=== PATIENT | male | born 1945 | race Caucasian/White ===

== ENCOUNTER → 2020-01-22 | Day surgery (SDC) | payer MEDICARE ==
[2020-01-21 11:12] VITALS: BMI 33.6
[~2020-01-22] MED LIST: LIDOCAINE 1% INJ 10MG/ML (20 ML MDV) ONE; LIDOCAINE 1% INJ 10MG/ML (20 ML MDV) SQ ONE
[2020-01-22 12:45] VITALS: BP 146/70; PULSE 50; RESP 16; TEMP 98.5
[2020-01-22 13:04] LABS: Basophils # (A) 0.1 k/uL (0-0.2); Basophils % (A) 1 %; Eosinophils # (A) 0.2 k/uL (0-0.7); Eosinophils % (A) 2 %; HCT 43.7 % (39.0-53.0); Hypochromasia Moderate; Lymphocytes # (A) 1.3 k/uL (1.0-4.8); Lymphocytes % (A) 21 %; MCH 34.4 pg (25.0-35.0); MCV 107.5 fL (80.0-100.0); Macrocytosis Moderate; Mean Platelet Volume 7.1; Monocytes # (A) 0.3 k/uL (0-1.0); Monocytes % (A) 5 %; Neutrophils # (A) 4.2 k/uL (1.3-7.7); Neutrophils % (A) 69 %; Platelet Count 222 k/uL (150-450); RBC 4.07 m/uL (4.30-5.90); RDW 14.6 % (11.5-15.5); WBC 6.1 k/uL (3.8-10.6)
[2020-01-22 13:12] LABS: Potassium 3.6 mmol/L (3.5-5.1)
--- NOTE | 2020-01-22 16:26 | IR ---
EXAMINATION TYPE: IR cvc insert >=5 years DATE OF EXAM: 01/22/2020 COMPARISON: NONE CLINICAL HISTORY: Osteomyelitis WASTE MINIMIZATION TECHNICIAN: Dr. Anita Steiner PROCEDURE: (Procedure images are seen on same date accession number [id number]). The procedure was discussed with the patient. The risks, complications, benefits, and alternatives we re discussed and any questions were answered. Informed consent was obtained. The patient was placed supine. Maximal barrier technique utilized. After informed consent, the skin o verlying the left basilic vein was localized with ultrasound and noted to be compressible and patent. An ultrasound image was obtained and submitted on the patient's chart. Sterile technique utilized w ith the ultrasound machine. The skin overlying was prepped and draped and Lidocaine used for local an esthesia. Access was gained to the vein under ultrasound guidance with a 21 gauge needle and a 0.018 inch wire was advanced. A skin edil was made with a scalpel. Access site was dilated with Peel-Away s comfort. 4 FR single lumen catheter tailored to the appropriate length of 44 cm and advanced such that the distal tip is at the cavoatrial junction. Spot image was obtained verifying PICC placement. Kassidy ter was fixed to the skin and a sterile dressing was placed following hemostasis. Catheter was aspira jerica and flushed with saline. Patient was discharged from the radiology department in stable condition without immediate complication. Fluoro time: 0.6 minutes Fluoroscopic images obtained: 64 IMPRESSION: Status post ultrasound-guided and fluoroscopic-guided PICC placement, ready for use.
== END ==
LOC: CATHCVL 11:53
PROVIDERS: ATTEND Radiology Diagnostic Radiology
DX: E11.69 Type 2 diabetes mellitus with other specified complication (principal); M86.9 Osteomyelitis, unspecified; B95.61 Methicillin susceptible Staphylococcus aureus infection as the cause of diseases classified elsewhere; J44.9 Chronic obstructive pulmonary disease, unspecified; Z88.0 Allergy status to penicillin; Z79.84 Long term (current) use of oral hypoglycemic drugs; Z79.01 Long term (current) use of anticoagulants; Z79.899 Other long term (current) drug therapy; Z88.8 Allergy status to other drugs, medicaments and biological substances; Z82.49 Family history of ischemic heart disease and other diseases of the circulatory system; Z83.3 Family history of diabetes mellitus
CPT/HCPCS: 36573; 80051; 82565; 84520; 85025; C1751; C1769; J2001

== ENCOUNTER 2020-02-10 12:39 | Observation (INO) | payer MEDICARE ==
--- NOTE | 2020-02-10 13:09 | ED ---
General Adult HPI - General Chief complaint: Seizure Stated complaint: Poss seizure Time Seen by Provider: 02/10/20 12:47 Source: patient, Caregiver Mode of arrival: wheelchair Limitations: physical limitation - History of Present Illness Initial comments: Dictation was produced using [employer] dictation software. please excuse any grammatical, word or spelling errors. This patient was cared for during a federal and state declared state of emergen cy secondary to Covid 19 Chief Complaint: 74-year-old male presents to the emergency department for seizure History of Present Illness: 82-year-old male his past medical history of COPD, c hronic wounds, diabetes, DVT, dyslipidemia. He was at our local hyperbaric oxygen facility. I did receive report from nurse practitioner who operates the hyperbaric oxygen chamber. She states that he was in the HPI or chamber with a dose of 2.2 ATMS for 1-1/2 hours. Patient was observed to have a seizure for couple minutes with postictal state after. Patient is at bedside stable medical condition. He does not report any symptoms. He does not remember what happened. He feels at baseline currently. Patient denies any history of seizures. The ROS documented in this emergency department record has been reviewed and confirmed by me. Those systems with pertinent positive or negative responses have been documented in the HPI. All other systems are other negative and/or noncontributory. PHYSICAL EXAM: General Impression: Alert and oriented x3, not in acute distress HEENT: Normocephalic atraumatic, extra-ocular movements intact, pupils equal and reactive to light bilaterally, mucous membranes moist. Cardiovascular: Heart regular rate and rhythm Chest: Able to complete full sentences, no retractions, no tachypnea Abdomen: abdomen soft, non-tender, non-distended, no organomegaly Musculoskeletal: Pulses present and equal in all extremities, no peripheral edema Motor: no focal deficits noted Neurological: CN II-XII grossly intact, no focal motor or sensory deficits noted, NIH of 0 Skin: Chronic hyperpigmented wounds to the bilateral lower extremities. Psych: Normal affect and mood ED course: 74-year-old male presents with oxygen toxicity secondary to hyperbaric oxygen administration. Vital signs upon arrival are within acceptable limits. Patient's well-appearing at bedside. He reports feeling baseline. Physical examination is benign for any acute processes. Laboratory evaluation obtained. CBC unremarkable. Metabolic panel is negative. Computed tomography scan of the brain shows no acute processes. Case is discussed with Dr. Arias is a patient be admitted for EEG. Patient notified of results. Patient be admitted to [facility]. EKG interpretation: Ventricular rate 97, normal sinus rhythm, MS interval 180, QRS 156, QTC 525. No MS prolongation, no QTC prolongation, no ST or T-wave changes noted. No EKG for comparison - Related Data Home Medications Medication Instructions Recorded Confirmed Lisinopril-Hctz 10-12.5 mg 1 each PO DAILY 09/30/13 01/22/20 [Zestoretic 10-12.5] Simvastatin [Zocor] 20 mg PO HS 09/30/13 01/22/20 Warfarin [Coumadin] 5 mg PO HS 09/30/13 01/21/20 metFORMIN HCL 500 mg PO BID 09/30/13 01/22/20 Allergies Allergy/AdvReac Type Severity Reaction Status Date / Time cephalexin monohydrate Allergy Unknown Verified 01/21/20 11:00 [From Keflex] lanolin [From BAG BALM] Allergy Rash/Hives Verified 01/21/20 11:00 lanolin Allergy Swelling Verified 01/21/20 11:00 oxyquinoline sulfate Allergy Rash/Hives Verified 01/21/20 11:00 [From BAG BALM] penicillin G Allergy Rash/Hives Verified 01/21/20 11:00 petrolatum,white Allergy Rash/Hives Verified 01/21/20 11:00 [From BAG BALM] Review of Systems ROS Statement: Those systems with pertinent positive or pertinent negative responses have been documented in the HPI. ROS Other: All systems not noted in ROS Statement are negative. Past Medical History Past Medical History: COPD, Diabetes Mellitus, Deep Vein Thrombosis (DVT), Hyperlipidemia, Hypertension, Pneumonia Additional Past Medical History / Comment(s): Hx of wounds left leg. Hx Pneumonia a few times, current wound to left foot getting IV abx and hy History of Any Multi-Drug Resistant Organisms: None Reported Past Surgical History: Joint Replacement, Orthopedic Surgery Additional Past Surgical History / Comment(s): Left hip replacement. Plates and pins left leg after injury that have since been removed. Bilatateral Cataract surgery. Past Anesthesia/Blood Transfusion Reactions: No Reported Reaction Past Psychological History: No Psychological Hx Reported Smoking Status: Never smoker Past Alcohol Use History: None Reported Past Drug Use History: None Reported - Past Family History Mother Family Medical History: CVA/TIA, Diabetes Mellitus, Hypertension Additional Family Medical History / Comment(s): age 50 of CVA. Father Family Medical History: Diabetes Mellitus, Vascular Disorder Additional Family Medical History / Comment(s): age 85 of "old age". General Exam Limitations: physical limitation Course Vital Signs 02/10/20 12:46 Temperature 98 F Pulse Rate 99 Respiratory 18 Rate Blood Pressure 134/74 O2 Sat by Pulse 95 Oximetry Medical Decision Making - Lab Data Result diagrams: 02/10/20 13:15 02/10/20 13:15 Lab Results 02/10/20 02/10/20 02/10/20 Range/Units 13:15 13:15 13:18 WBC 7.7 (3.8-10.6) k/uL RBC 3.79 L (4.30-5.90) m/uL Hgb 13.1 (13.0-17.5) gm/dL Hct 42.0 (39.0-53.0) % MCV 110.9 H (80.0-100.0) fL MCH 34.5 (25.0-35.0) pg MCHC 31.1 (31.0-37.0) g/dL RDW 14.4 (11.5-15.5) % Plt Count 233 (150-450) k/uL MPV 7.0 Neutrophils % 83 % Lymphocytes % 9 % Monocytes % 4 % Eosinophils % 2 % Basophils % 1 % Neutrophils # 6.4 (1.3-7.7) k/uL Lymphocytes # 0.7 L (1.0-4.8) k/uL Monocytes # 0.3 (0-1.0) k/uL Eosinophils # 0.2 (0-0.7) k/uL Basophils # 0.1 (0-0.2) k/uL Manual Slide Review Performed Hypochromasia Marked Poikilocytosis (manual Present Macrocytosis Marked A Sodium 143 (137-145) mmol/L Potassium 4.2 (3.5-5.1) mmol/L Chloride 106 (98-107) mmol/L Carbon Dioxide 32 H (22-30) mmol/L Anion Gap 5 mmol/L BUN 17 (9-20) mg/dL Creatinine 1.09 (0.66-1.25) mg/dL Est GFR (CKD-EPI)AfAm 78 (>60 ml/min/1.73 sqM) Est GFR (CKD-EPI)NonAf 68 (>60 ml/min/1.73 sqM) Glucose 196 H (74-99) mg/dL POC Glucose (mg/dL) 183 H (75-99) mg/dL POC Glu Director [employer] ID Carolyn Barron Calcium 8.5 (8.4-10.2) mg/dL Magnesium 2.2 (1.6-2.3) mg/dL Disposition Clinical Impression: Seizure Disposition: ADMITTED IP TO THIS [facility] Condition: Fair Referrals: Nonstaff,Physician [REFERRING] - 1-2 days Decision Time: 14:23
[2020-02-10 13:22] LABS: Glucose,Whole Blood 183 mg/dL (75-99)
[2020-02-10 13:27] LABS: Basophils # (A) 0.1 k/uL (0-0.2); Basophils % (A) 1 %; Eosinophils # (A) 0.2 k/uL (0-0.7); Eosinophils % (A) 2 %; HGB 13.1 gm/dL (13.0-17.5); Hypochromasia Marked; Lymphocytes # (A) 0.7 k/uL (1.0-4.8); Lymphocytes % (A) 9 %; MCH 34.5 pg (25.0-35.0); MCHC 31.1 g/dL (31.0-37.0); MCV 110.9 fL (80.0-100.0); Macrocytosis Marked; Monocytes # (A) 0.3 k/uL (0-1.0); Monocytes % (A) 4 %; Neutrophils # (A) 6.4 k/uL (1.3-7.7); Neutrophils % (A) 83 %; Platelet Count 233 k/uL (150-450); RBC 3.79 m/uL (4.30-5.90); RDW 14.4 % (11.5-15.5); WBC 7.7 k/uL (3.8-10.6)
--- NOTE | 2020-02-10 14:03 | CT ---
EXAMINATION TYPE: CT brain wo con DATE OF EXAM: 02/10/2020 COMPARISON: Weakness and confusion HISTORY: weakness and confusion CT DLP: 1202.4 mGycm Automated exposure control for dose reduction was used. FINDINGS: There is a focal area of abnormal attenuation involving the basal ganglia on the right most likely in the basis of remote infarct. Moderate generalized degenerative change of the white matter and perive ntricular low attenuation most typical remote white matter ischemia. No acute hemorrhage or mass effect. No midline shift. Ectasia of the carotid arteries are noted. Craniocervical junction maintained. Sella turcica demonstrates mild prominence of the pituitary gland . IMPRESSION: DEGENERATIVE AND NONSPECIFIC WHITE MATTER CHANGE WITH NO EVIDENCE OF ACUTE HEMORRHAGE OR MASS EFFECT.
[2020-02-10 14:11] LABS: Calcium 8.5 mg/dL (8.4-10.2); Magnesium 2.2 mg/dL (1.6-2.3); Potassium 4.2 mmol/L (3.5-5.1)
[2020-02-10 14:21] LABS: Poikilocytosis (M) Present
[2020-02-10] MEDS ORDERED: NALOXONE 0.4 MG/ML 1 ML VIAL IV PRN (14:23)
[2020-02-10] MEDS ORDERED: LORazepam 2 MG/ML INJ IV PRN (15:01)
[2020-02-10 16:02] LABS: INR 1.4 (<1.2); Prothrombin Time 13.8 sec (9.0-12.0)
[2020-02-10 16:59] LABS: Glucose,Whole Blood 149 mg/dL (75-99)
[2020-02-10] MEDS: INSULIN ASPART (NovoLOG) 100 UNIT/ML VIAL SQ SCH ×2 (17:54→20:18)
[2020-02-10] MEDS ORDERED: WARFARIN 3 MG TAB PO ONE (18:00)
--- NOTE | 2020-02-10 19:08 | P.HPIM ---
History of Present Illness This is a pleasant 74 years old male with past medical history of COPD, diabetes mellitus, deep venous thrombosis on warfarin about 10 years ago where his doctor told him he should be on warfarin for the rest of his life. Hyperlipidemia, hypertension. Patient presents because of new onset seizure. He was at the wound center in the hyperbaric oxygen chamber when he developed a witnessed seizure for about 2 minutes followed by post ictal state as per documentation, patient himself does not remember what happened although he remembers he was at the wound center. He denies any history of seizure, he is not on antiseizure m edication, he denies any symptoms prior to this event. He workup while he was at the wound center and then he was transferred to the emergency room Patient has history of right foot wound at the big toe, he was admitted in hospital about 2 weeks ago where midline was placed in his left arm and is c urrently on daptomycin and Flagyl. He denies any other new medication is started for him. His PCP is at [facility] On admission his vitals are stable. Unremarkable CBC, BMP, glucose is elevated at 196, EKG showed normal sinus rhythm with left bundle branch block, it rate of 97 and foam QTC at 525 CT of the brain, negative for acute processes per radiologist. Patient was admitted to the hospital for further monitoring and neurologist to evaluate the patient Patient currently back to his baseline and he is asymptomatic, lying in bed comfortable Patient wishes is to be DO NOT RESUSCITATE per staff Review of Systems CONSTITUTIONAL: No fever, no malaise, no fatigue. HEENT: No recent visual problems or hearing problems. Denied any sore throat. CARDIOVASCULAR: No orthopnea, PND, no palpitations, no syncope. PULMONARY: No shortness of breath, no cough, no hemoptysis. GASTROINTESTINAL: No diarrhea, no nausea, no vomiting, no abdominal pain. Normoactive bowel sounds. NEUROLOGICAL: No headaches, no weakness, no numbness. HEMATOLOGICAL: Denies any bleeding or petechiae. GENITOURINARY: Denies any burning micturition, frequency, or urgency. MUSCULOSKELETAL/RHEUMATOLOGICAL: Denies any joint pain, swelling, or any muscle pain. ENDOCRINE: Denies any polyuria or polydipsia. Past Medical History Past Medical History: COPD, Diabetes Mellitus, Deep Vein Thrombosis (DVT), Hyperlipidemia, Hypertension, Pneumonia Additional Past Medical History / Comment(s): Hx of wounds left leg. Hx Pneumo ze a few times, current wound to left foot getting IV abx and hy History of Any Multi-Drug Resistant Organisms: None Reported Past Surgical History: Joint Replacement, Orthopedic Surgery Additional Past Surgical History / Comment(s): Left hip replacement. Plates and pins left leg after injury that have since been removed. Bilatateral Cataract surgery. Past Anesthesia/Blood Transfusion Reactions: No Reported Reaction Past Psychological History: No Psychological Hx Reported Smoking Status: Never smoker Past Alcohol Use History: None Reported Past Drug Use History: None Reported - Past Family History Mother Family Medical History: CVA/TIA, Diabetes Mellitus, Hypertension Additional Family Medical History / Comment(s): age 50 of CVA. Father Family Medical History: Diabetes Mellitus, Vascular Disorder Additional Family Medical History / Comment(s): age 85 of "old age". Medications and Allergies Home Medications Medication Instructions Recorded Confirmed Type Simvastatin [Zocor] 20 mg PO HS 09/30/13 02/10/20 History Warfarin [Coumadin] 5 mg PO HS 09/30/13 02/10/20 History DAPTOmycin [Daptomycin] 350 mg IV DAILY 02/10/20 02/10/20 History Furosemide [Lasix] 40 mg PO DAILY 02/10/20 02/10/20 History Potassium Chloride ER [K-Dur 20] 20 meq PO DAILY 02/10/20 02/10/20 History acetaZOLAMIDE [Diamox] 250 mg PO DAILY 02/10/20 02/10/20 History glipiZIDE [Glucotrol] 10 mg PO DAILY 02/10/20 02/10/20 History metFORMIN HCL [Glucophage] 1,000 mg PO DAILY 02/10/20 02/10/20 History metroNIDAZOLE [Flagyl] 500 mg PO TID 02/10/20 02/10/20 History Allergies Allergy/AdvReac Type Severity Reaction Status Date / Time cephalexin monohydrate Allergy Unknown Verified 01/21/20 11:00 [From Keflex] lanolin [From BAG BALM] Allergy Rash/Hives Verified 01/21/20 11:00 lanolin Allergy Swelling Verified 01/21/20 11:00 oxyquinoline sulfate Allergy Rash/Hives Verified 01/21/20 11:00 [From BAG BALM] penicillin G Allergy Rash/Hives Verified 01/21/20 11:00 petrolatum,white Allergy Rash/Hives Verified 01/21/20 11:00 [From BAG BALM] Physical Exam Vitals: Vital Signs Temp Pulse Resp BP BP Pulse Ox 02/10/20 14:39 97.1 F L 16 129/77 02/10/20 14:35 82 16 132/76 94 L 02/10/20 12:46 98 F 99 18 134/74 95 Intake and Output 02/10/20 02/10/20 02/10/20 06:59 14:59 22:59 Other: Weight 127.006 kg GENERAL: The patient is alert and oriented x3, not in any acute distress. Well developed, well nourished. HEENT: Pupils are round and equally reacting to light. EOMI. No scleral icterus. No conjunctival pallor. Normocephalic, atraumatic. No pharyngeal erythema. No thyromegaly. CARDIOVASCULAR: S1 and S2 present. No murmurs, rubs, or gallops. PULMONARY: Chest is clear to auscultation, no wheezing or crackles. ABDOMEN: Soft, nontender, nondistended, normoactive bowel sounds. No palpable organomegaly. MUSCULOSKELETAL: No joint swelling or deformity. -EXTREMITIES: No cyanosis, clubbing, or pedal edema. Ulcer at the base of the right big toenail, with some surrounding deformity, no obvious cellulitis or pur ulent discharge NEUROLOGICAL: Gross neurological examination did not reveal any focal deficits. SKIN: No rashes. No petechiae Results CBC & Chem 7: 02/10/20 13:15 02/10/20 13:15 Labs: Abnormal Lab Results - Last 24 Hours (Table) 02/10/20 02/10/20 02/10/20 Range/Units 13:15 13:15 13:18 RBC 3.79 L (4.30-5.90) m/uL MCV 110.9 H (80.0-100.0) fL Lymphocytes # 0.7 L (1.0-4.8) k/uL Macrocytosis Marked A PT (9.0-12.0) sec INR (<1.2) Carbon Dioxide 32 H (22-30) mmol/L Glucose 196 H (74-99) mg/dL POC Glucose (mg/dL) 183 H (75-99) mg/dL 02/10/20 02/10/20 Range/Units 15:27 16:53 RBC (4.30-5.90) m/uL MCV (80.0-100.0) fL Lymphocytes # (1.0-4.8) k/uL Macrocytosis PT 13.8 H (9.0-12.0) sec INR 1.4 H (<1.2) Carbon Dioxide (22-30) mmol/L Glucose (74-99) mg/dL POC Glucose (mg/dL) 149 H (75-99) mg/dL Thrombosis Risk Factor Assmnt - Choose All That Apply Each Factor Represents 1 point: Abnormal pulmonary function (COPD) Other Risk Factors: No Each Risk Factor Represents 2 Points: Age 61-74 years Other congenital or acquired thrombophilia - If yes, enter type in comment: No Each Risk Factor Represents 5 Points: Elective major lower extremity arthoplasty Thrombosis Risk Factor Assessment Total Risk Factor Score: 8 Thrombosis Risk Factor Assessment Level: High Risk Assessment and Plan Assessment: -New-onset seizure, witnessed last for 2 minutes followed by post ictal state, continue with the neuro check, Ativan as needed, neurologist consulted -Right diabetic toe wound on daptomycin and Flagyl. We are going to consult infectious disease -Diabetes mellitus with hyperglycemia -History of deep venous thrombosis on warfarin -Hypertension -Hyperlipidemia -Obesity DVT prophylaxisOn warfarin GI Prophylaxis: Pepcid Prognosis is guarded
[2020-02-10 20:10] LABS: Glucose,Whole Blood 167 mg/dL (75-99)
[2020-02-10] MEDS: FAMOTIDINE 20 MG/2 ML VIAL IV SCH (20:17)
[2020-02-10] MEDS: HEPARIN SODIUM,PORCINE 5,000 UNIT/ML 1 ML VIAL SQ SCH (20:18)
--- NOTE | 2020-02-10 20:28 | P.CNNES ---
History of Present Illness Consult date: 02/10/20 Requesting physician: David Freeman Reason for Consult: Seizure History of Present Illness: Patient is a 74-year-old male with history of COPD, chronic wounds in the feet, diabetes, DVT, dyslipidemia, had his first session in hyperbaric oxygen facility. He never had hyperbaric oxygen treatment in the past. Patient was inside the chamber for 1-1/2 hours, feeling fine with no symptoms like dizziness or near syncopal symptoms. Patient was observed to have a seizure for couple minutes with postictal state afterwards. Patient does not remember any symptoms prior to this passing out, and he woke up in the ER. Patient denies any tongue bite or loss of control of urine. Patient never has seizure in the past. P maude was admitted for observation. At present patient feels fine. Patient underwent computed tomography scan of the head, which revealed degenerative and nonspecific white matter changes with no evidence of acute hemorrhage or mass effect. EKG shows normal sinus rhythm, left axis deviation, right bundle branch block. Patient's blood test shows normal WBC 7.7, hemoglobin 13.1, elevated MCV 110.9, platelets 233. INR 1.4. Lateral lites are normal, renal functions normal. Hemoglobin A1c 6.6 on 04/11/2016. Patient has history of diabetes for 15 years. He never smoked, never drank alcohol. Review of Systems * Patient denies any headache problem with the vision, hoarseness sore throat dysphagia. Denies any abdominal pain, nausea vomiting diarrhea. Denies any chest pain shortness of breath. Denies any neck pain. Patient does have skin changes in the lower legs. Some pain in the legs. All other review of systems unremarkable. Patient denies any tongue bite, or loss of control of urine with the seizure. Denies lightheadedness. No dizziness. Past Medical History Past Medical History: COPD, Diabetes Mellitus, Deep Vein Thrombosis (DVT), Hyperlipidemia, Hypertension, Pneumonia Additional Past Medical History / Comment(s): Hx of wounds left leg. Hx Pneumonia a few times, current wound to left foot getting IV abx and hy History of Any Multi-Drug Resistant Organisms: None Reported Past Surgical History: Joint Replacement, Orthopedic Surgery Additional Past Surgical History / Comment(s): Left hip replacement. Plates and pins left leg after injury that have since been removed. Bilatateral Cataract surgery. Past Anesthesia/Blood Transfusion Reactions: No Reported Reaction Past Psychological History: No Psychological Hx Reported Smoking Status: Never smoker Past Alcohol Use History: None Reported Past Drug Use History: None Reported - Past Family History Mother Family Medical History: CVA/TIA, Diabetes Mellitus, Hypertension Additional Family Medical History / Comment(s): age 50 of CVA. Father Family Medical History: Diabetes Mellitus, Vascular Disorder Additional Family Medical History / Comment(s): age 85 of "old age". Medications and Allergies Home Medications Medication Instructions Recorded Confirmed Type Simvastatin [Zocor] 20 mg PO HS 09/30/13 02/10/20 History Warfarin [Coumadin] 5 mg PO HS 09/30/13 02/10/20 History DAPTOmycin [Daptomycin] 350 mg IV DAILY 02/10/20 02/10/20 History Furosemide [Lasix] 40 mg PO DAILY 02/10/20 02/10/20 History Potassium Chloride ER [K-Dur 20] 20 meq PO DAILY 02/10/20 02/10/20 History acetaZOLAMIDE [Diamox] 250 mg PO DAILY 02/10/20 02/10/20 History glipiZIDE [Glucotrol] 10 mg PO DAILY 02/10/20 02/10/20 History metFORMIN HCL [Glucophage] 1,000 mg PO DAILY 02/10/20 02/10/20 History metroNIDAZOLE [Flagyl] 500 mg PO TID 02/10/20 02/10/20 History Allergies Allergy/AdvReac Type Severity Reaction Status Date / Time cephalexin monohydrate Allergy Unknown Verified 01/21/20 11:00 [From Keflex] lanolin [From BAG BALM] Allergy Rash/Hives Verified 01/21/20 11:00 lanolin Allergy Swelling Verified 01/21/20 11:00 oxyquinoline sulfate Allergy Rash/Hives Verified 01/21/20 11:00 [From BAG BALM] penicillin G Allergy Rash/Hives Verified 01/21/20 11:00 petrolatum,white Allergy Rash/Hives Verified 01/21/20 11:00 [From BAG BALM] Physical Examination - Vital Signs Vital Signs: Vital Signs Temp Pulse Pulse Resp BP BP Pulse Ox 02/10/20 19:07 97.8 F 81 16 118/66 98 02/10/20 14:39 97.1 F L 16 129/77 02/10/20 14:35 82 16 132/76 94 L 02/10/20 12:46 98 F 99 18 134/74 95 Intake and Output 02/10/20 02/10/20 02/10/20 06:59 14:59 22:59 Other: Weight 127.006 kg On examination patient is an elderly male, in no acute distress. Patient is alert and awake, somewhat flat affect. Patient is fully oriented to time place and person. Speech and language functions are normal. Attention and concentration fund of knowledge is adequate. Cranial nerve examination pupils are round and reacting to light, visual neff are full on confrontation. Extraocular muscles are intact with no nystagmus. Face is symmetric, tongue protrudes to the midline. Palatal elevation and sensation normal, hearing and shoulder shrug normal. Facial sensations normal. Shoulder shrug normal. On muscle strength testing there is no pronator drift and the strength is normal in arms and legs distally and proximally. Reflexes are symmetric, diminished and plantars are downgoing. Sensory touch is equal. No ataxia for [id number] testing, tone and bulk of muscles normal. Gait deferred. There is no obvious bruit, S1 and S2 audible, peripheral pulses are not clearly present. Patient has peripheral edema. Some skin changes are noted. Results - Laboratory Findings CBC and BMP: 02/10/20 13:15 02/10/20 13:15 Abnormal Lab Findings: Abnormal Labs 02/10/20 02/10/20 02/10/20 13:15 13:15 13:18 RBC 3.79 L MCV 110.9 H Lymphocytes # 0.7 L Macrocytosis Marked A PT INR Carbon Dioxide 32 H Glucose 196 H POC Glucose (mg/dL) 183 H 02/10/20 02/10/20 02/10/20 15:27 16:53 20:09 RBC MCV Lymphocytes # Macrocytosis PT 13.8 H INR 1.4 H Carbon Dioxide Glucose POC Glucose (mg/dL) 149 H 167 H Assessment and Plan Assessment: * New onset seizure versus syncope while undergoing hyperbaric oxygen treatment. Patient has no prior warning before he passed out. Rule out arrhythmia. * Diabetes * Diabetic foot ulcer * Hypertension * Hyperlipidemia * Obesity Plan: * Patient had a normal computed tomography scan of the head. * We will check carotid Doppler and EEG. If above tests are normal, would be clear for discharge. * Telemetric monitoring. * Discontinue hyperbaric treatment.
[2020-02-10] MEDS ORDERED: WARFARIN 5 MG TAB PO SCH (21:00)
[2020-02-10] MEDS ORDERED: ATORVASTATIN 10 MG TAB PO SCH (21:00)
--- NOTE | 2020-02-10 21:30 | US ---
EXAMINATION TYPE: US carotid duplex BILAT DATE OF EXAM: 02/10/2020 COMPARISON: NONE CLINICAL HISTORY: New onset seizure v syncope. New onset seizure versus syncope per order. Patient po or historian. EXAM MEASUREMENTS: RIGHT: Peak Systolic Velocity (PSV) cm/sec ----- Right CCA: 76.2 ----- Right ICA: 95.2 ----- Right ECA: 115.7 ICA/CCA ratio: 1.3 RIGHT: End Diastole cm/sec ----- Right CCA: 17.9 ----- Right ICA: 40.3 ----- Right ECA: 0.0 LEFT: Peak Systolic Velocity (PSV) cm/sec ----- Left CCA: 80.6 ----- Left ICA: 144.5. ----- Left ECA: 80.6 ICA/CCA ratio: 1.8 LEFT: End Diastole cm/sec ----- Left CCA: 22.3 ----- Left ICA: 36.1 ----- Left ECA: 0.0 VERTEBRALS (direction of flow): Right Vertebral: Antegrade Left Vertebral: Antegrade Rhythm: Normal Intimal thickening seen bilaterally. Minimal plaque seen right bulb. Elevated velocities left ICA. Le ft ICA appears to course quickly posterior. Hypoechoic area with hyperechoic center seen right neck measurin.4 x 1.8 x 0.7 cm. IMPRESSION: Atheromatous plaquing with moderate left ICA narrowing based on velocities. Criteria for Assigning % of Stenosis / Diameter reduction (Estimation based on the indirect measurements of the internal carotid artery velocities (ICA PSV). 1. Normal (no stenosis)=ICA PSV < 125 cm/s: ratio < 2.0: ICA EDV<40 cm/s. 2. Less than 50% stenosis=ICA PSV < 125 cm/s: ratio < 2.0: ICA EDV<40 cm/s. 3. 50 to 69% stenosis=ICA PSV of 125 to 230 cm/s: ration 2.0 ? 4.0: ICA EDV 40-100 cm/s. 4. Greater than 70% stenosis to near occlusion= ICA PSV > 230 cm/s: ratio > 4.0: ICA EDV > 100 cm/s. 5. Near occlusion= ICA PSV velocities may be low or undetectable: variable ratio and ICA EDV. 6. Total occlusion=unable to detect flow.
--- NOTE | 2020-02-10 22:36 | CONS ---
CONSULTATION DATE OF SERVICE: 02/10/2020 REASON FOR CONSULTATION: Left big toe diabetic foot infection with osteomyelitis. HISTORY OF PRESENT ILLNESS: The patient is a 74-year-old male with a medical history significant for a chronic nonhealing wound of left great toe which the patient has had for almost a year. The patient was evaluated in the office on 01/20/2020 the patient had an MRI completed on 12/30/2019 with evidence of osteomyelitis. Local culture was positive for MSSA streptococci and anaerobes. The patient does have ALLERGIES TO PENICILLIN and KEFLEX. The patient was advised daptomycin 8 mg/kg for a total of 6 weeks along with oral Flagyl. The patient was evaluated in [facility] [place] and the patient was advised hyperbaric oxygen therapy. While the patient was in the hyperbaric oxygen chamber he had an episode of seizure. The patient was taken out of the chamber and was rushed to [facility] ER. On arrival at the ER, the patient had a CT of the brain that did not show any acute hemorrhage. The patient has been afebrile. The patient did have a normal white count. INR was 1.4. The patient has been admitted to the hospital for further workup. Infectious Disease was consulted for followup on his left big toe osteomyelitis and antibiotic as well as local wound care. At the time of my evaluation, the patient currently denies having any fever or any chills. The patient denies having any chest pain or shortness of breath or cough. No nausea. No vomiting. No abdominal pain. The patient's left big toe wound is currently healed. Local wound care with Hydrofera Blue dressing. No drainage. Denies any pain to the left big toe. REVIEW OF SYSTEMS: Positive points have been mentioned in the HPI. Rest of the systems are negative. PAST MEDICAL HISTORY: COPD, diabetes mellitus, DVT, hyperlipidemia, hypertension, pneumonia, left big toe osteomyelitis with MSSA, anaerobes. PAST SURGICAL HISTORY: Left hip replacement, plates and pins in left leg, bilateral cataract surgery. SOCIAL HISTORY: He denies smoking, drinking or drug use. FAMILY HISTORY: Mother with history of diabetes, hypertension, CVA. Father with history of diabetes. ALLERGIES: PENICILLIN, CEPHALEXIN, LANOLIN. MEDICATIONS: The patient is currently on Diamox, Lipitor, Pepcid, Lasix, Glucotrol, heparin, NovoLog, Ativan, Glucophage, Narcan. PHYSICAL EXAMINATION: Blood pressure is 118/66, pulse of 81, temperature of 97.8. He is 98% on 2 L nasal cannula. General description is an elderly male lying in bed in no distress. No tachypnea or accessory muscle of respiration use. HEENT: Examination shows no pallor or scleral icterus. Oral mucous membrane is dry. No pharyngeal erythema or thrush. NECK: Trachea is central. No thyromegaly. LUNGS: Unlabored breathing. Clear to auscultation anteriorly. No wheeze or crackle. HEART: S1, S2. Regular rate and rhythm. ABDOMEN: Soft. No tenderness. No guarding or rigidity. EXTREMITIES: No edema of feet. On examination of the left big toe, wound is currently healed. Minimal swelling. No significant redness. No evidence of athlete's foot in between the toes. No drainage. NEUROLOGIC: The patient is awake, alert, oriented x3. Mood and affect normal. LABS: Hemoglobin is 13.9, white count 7.7, BUN of 17, creatinine 1.09. DIAGNOSTIC IMPRESSION AND PLAN: Patient with a left diabetic foot infection with left big toe osteomyelitis. Cultures were positive for MSSA, streptococcus and anaerobes. This patient is currently undergoing treatment with daptomycin and oral Flagyl. Admitted to the hospital after apparently having seizure activity in the hyperbaric chamber. PLAN: 1. We will keep the patient on daptomycin 8mg/kg along with oral Flagyl. 2. Dry protective dressing wound is currently healed. 3. We will follow his clinical condition and further adjust medication if needed. Thank you for this consultation. Will follow this patient along with you. MMODL / IJN: [id number] /
[2020-02-11 05:31] LABS: Hemoglobin A1C 7.1 % (4.0-6.0)
[2020-02-11 07:24] LABS: Glucose,Whole Blood 181 mg/dL (75-99)
[2020-02-11 08:13] LABS: INR 1.6 (<1.2); Prothrombin Time 15.9 sec (9.0-12.0)
[2020-02-11] MEDS: FAMOTIDINE 20 MG/2 ML VIAL IV SCH (08:26)
[2020-02-11] MEDS: INSULIN ASPART (NovoLOG) 100 UNIT/ML VIAL SQ SCH ×2 (08:27→14:12)
[2020-02-11] MEDS: HEPARIN SODIUM,PORCINE 5,000 UNIT/ML 1 ML VIAL SQ SCH (08:27)
[2020-02-11 08:45] LABS: Basophils % (A) 0 %; Eosinophils # (A) 0.2 k/uL (0-0.7); Eosinophils % (A) 2 %; HCT 41.3 % (39.0-53.0); HGB 12.2 gm/dL (13.0-17.5); Hypochromasia Marked; Lymphocytes # (A) 0.9 k/uL (1.0-4.8); Lymphocytes % (A) 14 %; MCH 32.9 pg (25.0-35.0); MCHC 29.7 g/dL (31.0-37.0); MCV 110.9 fL (80.0-100.0); Macrocytosis Marked; Monocytes # (A) 0.4 k/uL (0-1.0); Monocytes % (A) 6 %; Neutrophils # (A) 5.1 k/uL (1.3-7.7); Neutrophils % (A) 76 %; Platelet Count 213 k/uL (150-450); RBC 3.72 m/uL (4.30-5.90); RDW 14.7 % (11.5-15.5); WBC 6.7 k/uL (3.8-10.6)
[2020-02-11] MEDS ORDERED: metFORMIN 500 MG TAB PO SCH (09:00)
[2020-02-11] MEDS ORDERED: FUROSEMIDE 40 MG TAB PO SCH (09:00)
[2020-02-11] MEDS ORDERED: glipiZIDE 10 MG TAB PO SCH (09:00)
[2020-02-11] MEDS ORDERED: acetaZOLAMIDE 250 MG TAB PO SCH (09:00)
[2020-02-11 09:15] LABS: Folate, Serum 9.1 ng/mL
[2020-02-11 11:26] LABS: Glucose,Whole Blood 153 mg/dL (75-99)
[2020-02-11] MEDS ORDERED: metroNIDAZOLE 500 MG TAB PO SCH (13:00)
--- NOTE | 2020-02-11 13:54 | EEG ---
ELECTROENCEPHALOGRAM REPORT DATE OF SERVICE: 02/11/2020 PREAMBLE: This is a 74-year-old male who had a new onset seizure while in the hyperbaric oxygen chamber, getting treatment for a diabetic wound in his feet. The patient never had any history of seizure. This study is performed to evaluate for any epileptiform activity. EEG FINDINGS: This is a 21 channel routine EEG recording in a patient utilizing 10/20 international system with referential and bipolar montages. Background consists of well developed, well regulated, moderate voltage activity in the theta range predominantly 8-9 hertz alpha. The background is posterior dominant and reactive to eye opening and closing. Intermittent moderate amplitude generalized delta and some theta slowing was also seen. Different stages of sleep were not seen. Photic driving response was not seen. No focal or generalized epileptiform activity was seen. IMPRESSION: This is an abnormal EEG due to intermittent background slowing (generalized) of mild degree. This is suggestive of generalized cerebral dysfunction as can be seen with toxic metabolic encephalopathy or due to diffuse structural brain abnormality. No epileptiform activity was seen. MMODL / IJN: [id number] / MTDD
--- NOTE | 2020-02-11 14:34 | P.PN ---
Subjective Progress Note Date: 02/11/20 HISTORY OF PRESENT ILLNESS This is a 74-year-old male with past medical history significant for non-healing chronic wound to the left great toe. While patient was in hyperbarics, he had episode of seizure and was rushed to [facility] emergency center and subsequently admitted. CAT scan did not show any acute hemorrhage. Patient is seen for osteomyelitis of the left big toe. Area shows decreased erythema. Local wound care is in the form of Hydrofera Blue dressing along with daptomycin and Flagyl. On great toe wound is improving. Patient has not had any seizure activity and followed by neurology. Patient has been afebrile. Heart rate 65, blood pressure 112/62. Pulse ox 92% on 3 L. WBC 6.7. INR 1.6. PHYSICAL EXAMINATION Gen: This is a 74-year-old male. He is resting in bed and appears to be comfortable HEENT: Head is atraumatic, normocephalic. Pupils equal, round. Sclerae is anicteric. NECK: Supple. No JVD. No lymphadenopathy. LUNGS: Clear to auscultation. No wheezes or rhonchi. No intercostal retractions. HEART: Regular rate and rhythm. No murmur. ABDOMEN: Soft. Bowel sounds are present. No masses. No tenderness. EXTREMITIES: No pedal edema. No calf tenderness. Healing left big toe ulcer. No redness. NEUROLOGICAL: Patient is awake, alert and oriented x3. ASSESSMENT Osteomyelitis, diabetic left great toe ulcer Culture positive for MSSA, streptococcus, anaerobes Seizure activity while in hyperbaric chamber PLAN Continue daptomycin 8 mg/kg and oral Flagyl Continue dry protective dressing to wound Patient to continue outpatient antibiotics at the time of discharge, previously set up as daptomycin and Flagyl. The above dictated assessment and findings were discussed with Dr. Hudson. The impression and plan of care have been directed as dictated. Floridalma Brush nurse practitioner acting as scribe for Dr. Hudson. Objective - Vital Signs Vital signs: Vital Signs Temp 98.0 F 02/11/20 07:20 Pulse 65 02/11/20 08:00 Resp 16 02/11/20 08:00 BP 112/62 02/11/20 07:20 Pulse Ox 92 L 02/11/20 07:20 Intake & Output 02/10/20 02/11/2002/10/20 18:59 06:59 18:59 Output Total 675 Balance -675 Weight 127.006 kg Output: Urine 675 Other: Voiding Method Toilet Toilet - Labs CBC & Chem 7: 02/11/20 07:29 02/10/20 13:15 Labs: Abnormal Lab Results - Last 24 Hours (Table) 02/10/20 02/10/20 02/10/20 Range/Units 13:15 13:15 13:15 RBC (4.30-5.90) m/uL Hgb (13.0-17.5) gm/dL MCV (80.0-100.0) fL MCHC (31.0-37.0) g/dL Lymphocytes # 0.7 L (1.0-4.8) k/uL Macrocytosis PT (9.0-12.0) sec INR (<1.2) Carbon Dioxide 32 H (22-30) mmol/L Glucose 196 H (74-99) mg/dL POC Glucose (mg/dL) (75-99) mg/dL Hemoglobin A1c 7.1 H (4.0-6.0) % 02/10/20 02/10/20 02/10/20 Range/Units 15:27 16:53 20:09 RBC (4.30-5.90) m/uL Hgb (13.0-17.5) gm/dL MCV (80.0-100.0) fL MCHC (31.0-37.0) g/dL Lymphocytes # (1.0-4.8) k/uL Macrocytosis PT 13.8 H (9.0-12.0) sec INR 1.4 H (<1.2) Carbon Dioxide (22-30) mmol/L Glucose (74-99) mg/dL POC Glucose (mg/dL) 149 H 167 H (75-99) mg/dL Hemoglobin A1c (4.0-6.0) % 02/11/20 02/11/20 02/11/20 Range/Units 07:23 07:29 07:29 RBC 3.72 L (4.30-5.90) m/uL Hgb 12.2 L (13.0-17.5) gm/dL MCV 110.9 H (80.0-100.0) fL MCHC 29.7 L (31.0-37.0) g/dL Lymphocytes # 0.9 L (1.0-4.8) k/uL Macrocytosis Marked A PT 15.9 H (9.0-12.0) sec INR 1.6 H (<1.2) Carbon Dioxide (22-30) mmol/L Glucose (74-99) mg/dL POC Glucose (mg/dL) 181 H (75-99) mg/dL Hemoglobin A1c (4.0-6.0) % 02/11/20 Range/Units 11:14 RBC (4.30-5.90) m/uL Hgb (13.0-17.5) gm/dL MCV (80.0-100.0) fL MCHC (31.0-37.0) g/dL Lymphocytes # (1.0-4.8) k/uL Macrocytosis PT (9.0-12.0) sec INR (<1.2) Carbon Dioxide (22-30) mmol/L Glucose (74-99) mg/dL POC Glucose (mg/dL) 153 H (75-99) mg/dL Hemoglobin A1c (4.0-6.0) %
[2020-02-11 14:49] VITALS: BP 111/61; PULSE 75; RESP 20; TEMP 97.8
--- NOTE | 2020-02-11 16:12 | P.PN ---
Subjective Progress Note Date: 02/11/20 Patient is doing much better. Patient is sitting on the edge of the bed, having lunch. Offered no complaints. Denies headache. Telemetry monitoring showing sinus rhythm, sinus tachycardia in 110. Some PVCs and PACs. Patient has bundle-branch block. No significant arrhythmias. Objective - Vital Signs Vital signs: Vital Signs Temp 97.8 F 02/11/20 14:00 Pulse 75 02/11/20 14:00 Resp 20 02/11/20 14:00 BP 111/61 02/11/20 14:00 Pulse Ox 96 02/11/20 14:00 Intake & Output 02/10/20 02/11/20 02/11/20 18:59 06:59 18:59 Output Total 675 Balance -675 Weight 127.006 kg Output: Urine 675 Other: Voiding Method Toilet Toilet - Exam Patient's mental status, speech and language functions are normal. He is fully oriented, cranial nerves are normal. Muscle strength is normal. - Labs CBC & Chem 7: 02/11/20 07:29 02/10/20 13:15 Labs: Abnormal Lab Results - Last 24 Hours (Table) 02/10/20 02/10/20 02/10/20 Range/Units 13:15 16:53 20:09 RBC (4.30-5.90) m/uL Hgb (13.0-17.5) gm/dL MCV (80.0-100.0) fL MCHC (31.0-37.0) g/dL Lymphocytes # (1.0-4.8) k/uL Macrocytosis PT (9.0-12.0) sec INR (<1.2) POC Glucose (mg/dL) 149 H 167 H (75-99) mg/dL Hemoglobin A1c 7.1 H (4.0-6.0) % 02/11/20 02/11/20 02/11/20 Range/Units 07:23 07:29 07:29 RBC 3.72 L (4.30-5.90) m/uL Hgb 12.2 L (13.0-17.5) gm/dL MCV 110.9 H (80.0-100.0) fL MCHC 29.7 L (31.0-37.0) g/dL Lymphocytes # 0.9 L (1.0-4.8) k/uL Macrocytosis Marked A PT 15.9 H (9.0-12.0) sec INR 1.6 H (<1.2) POC Glucose (mg/dL) 181 H (75-99) mg/dL Hemoglobin A1c (4.0-6.0) % 02/11/20 Range/Units 11:14 RBC (4.30-5.90) m/uL Hgb (13.0-17.5) gm/dL MCV (80.0-100.0) fL MCHC (31.0-37.0) g/dL Lymphocytes # (1.0-4.8) k/uL Macrocytosis PT (9.0-12.0) sec INR (<1.2) POC Glucose (mg/dL) 153 H (75-99) mg/dL Hemoglobin A1c (4.0-6.0) % Assessment and Plan Assessment: * New onset seizure versus syncope while undergoing hyperbaric oxygen treatment. Patient has no prior warning before he passed out. Rule out arrhythmia. * Diabetes * Diabetic foot ulcer * Hypertension * Hyperlipidemia * Obesity Plan: * Patient had a normal computed tomography scan of the head. * EEG was done today, which was abnormal due to intermittent background slowing, mild degree. This is suggestive of generalized cerebral dysfunction, as can be seen with toxic metabolic encephalopathy due to diffuse structural brain abnormality. No epileptiform activity was seen. Patient not a candidate for AED. * Carotid Doppler revealed moderate left ICA narrowing. Antegrade flow in both vertebral arteries. Patient is on warfarin. INR is 1.6. Target INR as per IM. * Telemetry monitoring only sinus rhythm with sinus tachycardia and bundle- branch block. No significant arrhythmia. * Hemoglobin A1c 7.1. * Discontinue hyperbaric treatment. * Neurologically clear.
[2020-02-11] MEDS ORDERED: WARFARIN 3 MG TAB PO ONE (18:00)
[2020-02-11] MEDS ORDERED: FAMOTIDINE 20 MG TAB PO SCH (21:00)
--- NOTE | 2020-02-12 12:15 | P.DS ---
Providers Date of admission: 02/10/20 14:23 Expected date of discharge: 02/11/20 Attending physician: Ellen Mccormack Consults: 02/10/20 14:15 Consult Physician Routine Consulting Provider: Marli Arias Consult Reason/Comments: seizure Do you want consulting provider notified?: Yes 02/10/20 15:06 Consult Physician Routine Consulting Provider: Nabila Hudson Consult Reason/Comments: right foot wound Do you want consulting provider notified?: Yes Primary care physician: Stated None Hospital Course: Final diagnosis -Possible New-onset seizure versus syncope, seizure-like activity negative on EEG -Right diabetic toe wound on daptomycin and Flagyl -Diabetes mellitus with hyperglycemia -History of deep venous thrombosis on warfarin -Hypertension -Hyperlipidemia -Obesity -DVT prophylaxis -GI Prophylaxis -No code Discharge disposition Patient is being discharged in a stable condition with guarded prognosis to home. Patient will follow-up with primary care provider in the outpatient setting upon discharge. Patient will also continue with IV antibiotics per infectious disease and continue to follow at the wound center as previously scheduled. Total time taken is greater than 35 minutes. History of present illness This is a 74-year-old male who was recently admitted with possible new onset seizure with seizure-like activity noted at the hyperbaric oxygen chamber and was being closely monitored. Patient apparently had seizure-like activity that was witnessed and lasted about 2 minutes duration and patient was postictal and brought to the emergency room from the hyperbaric chamber Wound Center. Patient has been receiving this treatment along with IV antibiotics through a midline in the form of daptomycin and Flagyl. Infectious disease was consulted and patient will continue with current medication regimen in the outpatient setting. Patient to avoid Lipitor and statin which as been discontinued. Patient was seen and evaluated by neurology and underwent CT of the brain showing no acute processes along with EEG which was negative for any epileptiform activity. Patient is alert and oriented 3 and states he does not recall the event. Pat violetta states he would like to go home today. Currently no reports of chest pain, shortness of breath, or palpitations. Patient is afebrile. No reports of nausea or vomiting and patient is tolerating diet. Patient will be going home today. On exam vital signs are stable. Temp is 97.8F, pulse is 75, respirations are 20, blood pressure is 111/61, oxygen saturation is 96% on 3 L via nasal cannula. Patient does wear oxygen at home. Cardio S1, S2 are muffled. Respiratory system shows diminished breath sounds at the bases with no wheezing or rhonchi noted. Abdomen is soft and nontender. Nervous system shows no focal deficits. Please refer to medication reconciliation sheet for a list of medications. Patient Condition at Discharge: Fair Plan - Discharge Summary New Discharge Prescriptions: Continue Warfarin [Coumadin] 5 mg PO HS metroNIDAZOLE [Flagyl] 500 mg PO TID glipiZIDE [Glucotrol] 10 mg PO DAILY Potassium Chloride ER [K-Dur 20] 20 meq PO DAILY Furosemide [Lasix] 40 mg PO DAILY metFORMIN HCL [Glucophage] 1,000 mg PO DAILY acetaZOLAMIDE [Diamox] 250 mg PO DAILY DAPTOmycin [Daptomycin] 350 mg IV DAILY Discontinued Simvastatin [Zocor] 20 mg PO HS Discharge Medication List Warfarin [Coumadin] 5 mg PO HS 09/30/13 [History] DAPTOmycin [Daptomycin] 350 mg IV DAILY 02/10/20 [History] Furosemide [Lasix] 40 mg PO DAILY 02/10/20 [History] Potassium Chloride ER [K-Dur 20] 20 meq PO DAILY 02/10/20 [History] acetaZOLAMIDE [Diamox] 250 mg PO DAILY 02/10/20 [History] glipiZIDE [Glucotrol] 10 mg PO DAILY 02/10/20 [History] metFORMIN HCL [Glucophage] 1,000 mg PO DAILY 02/10/20 [History] metroNIDAZOLE [Flagyl] 500 mg PO TID 02/10/20 [History] Follow up Appointment(s)/Referral(s): Nonstaff,Physician [REFERRING] - 1-2 days Patient Instructions/Handouts: New-Onset Seizure in Adults (DC) Activity/Diet/Wound Care/Special Instructions: Activity Limited until follow-up Follow up with primary care provider upon discharge Continue with antibiotics previously arranged in the outpatient setting Continue with local wound care Discharge Disposition: HOME SELF-CARE
== END 2020-02-11 16:12 | disposition home or self-care (01) ==
LOC: EC 12:39 → 5NMEDONC 14:23
PROVIDERS: ADMIT Internal Medicine; ATTEND Internal Medicine
DX: R40.4 Transient alteration of awareness (principal); E11.69 Type 2 diabetes mellitus with other specified complication; E11.628 Type 2 diabetes mellitus with other skin complications; E11.621 Type 2 diabetes mellitus with foot ulcer; E11.65 Type 2 diabetes mellitus with hyperglycemia; Z86.718 Personal history of other venous thrombosis and embolism; I10 Essential (primary) hypertension; E78.5 Hyperlipidemia, unspecified; E66.9 Obesity, unspecified; Z68.41 Body mass index [BMI] 40.0-44.9, adult; L97.529 Non-pressure chronic ulcer of other part of left foot with unspecified severity; M86.9 Osteomyelitis, unspecified; B95.61 Methicillin susceptible Staphylococcus aureus infection as the cause of diseases classified elsewhere; R00.0 Tachycardia, unspecified; I45.2 Bifascicular block; I45.4 Nonspecific intraventricular block; R94.01 Abnormal electroencephalogram [EEG]; I65.22 Occlusion and stenosis of left carotid artery; L08.9 Local infection of the skin and subcutaneous tissue, unspecified; B95.5 Unspecified streptococcus as the cause of diseases classified elsewhere; J44.9 Chronic obstructive pulmonary disease, unspecified; Z66 Do not resuscitate; Z87.01 Personal history of pneumonia (recurrent); Z96.642 Presence of left artificial hip joint; Z79.01 Long term (current) use of anticoagulants; Z79.899 Other long term (current) drug therapy; Z79.84 Long term (current) use of oral hypoglycemic drugs; Z79.2 Long term (current) use of antibiotics; Z88.1 Allergy status to other antibiotic agents; Z88.0 Allergy status to penicillin; Z88.8 Allergy status to other drugs, medicaments and biological substances; Z91.048 Other nonmedicinal substance allergy status; Z82.3 Family history of stroke; Z83.3 Family history of diabetes mellitus; Z82.49 Family history of ischemic heart disease and other diseases of the circulatory system
CPT/HCPCS: 96365; 96366; 96375; 99285; 36415; 95816; 93005; 80048; 82607; 82746; 83735 ×2; 85025 ×2; 85610 ×2; 83036; 93880; 70450; G0378 ×2; J0878